=== PATIENT | male | born 1990 | race African-American/Black ===

== ENCOUNTER → 2018-04-20 11:44 | Outpatient (CLI) | payer MEDICARE ==
[2018-04-20 14:02] LABS: ALBUMIN 3.5 g/dL (3.4-5.0); BILIRUBIN - DIRECT 0.34 mg/dL (0.00-0.30); BILIRUBIN - INDIRECT 0.36 mg/dL (0.00-1.00); BILIRUBIN - TOTAL 0.7 mg/dL (0.2-1.3); PROTEIN - SERUM 7.4 g/dL (6.4-8.2)
== END | disposition home or self-care (01) ==
LOC: D.LABREF 11:44
PROVIDERS: Student in an Organized Health Care Education/Training Program
DX: R74.0 Nonspecific elevation of levels of transaminase and lactic acid dehydrogenase [LDH] (principal); E11.9 Type 2 diabetes mellitus without complications

== ENCOUNTER → 2018-05-25 09:15 | Outpatient (CLI) | payer OTHER | END | disposition home or self-care (01) | LOC: D.US 09:15 | DX: R74.0 Nonspecific elevation of levels of transaminase and lactic acid dehydrogenase [LDH] (principal) ==

== ENCOUNTER 2018-08-20 08:00 | Outpatient (CLI) | payer OTHER ==
[2018-08-20] MEDS ORDERED: GENVOYA PO (09:41)
[2018-08-20] MEDS ORDERED: ZESTRIL10 MG PO (09:41)
[2018-08-20] MEDS ORDERED: GLIMEPIRIDE2 MG PO (09:42)
[2018-08-20 10:29] LABS: BASOPHILS 0.2 % (0-2); EOSINOPHILS 2.2 % (0-7); HEMATOCRIT 42.1 % (42.0-54.0); HEMOGLOBIN 15.3 g/dL (13.5-17.5); IMMATURE GRANULOCYTES 0.2 % (0-5); LYMPHOCYTES 38.9 % (15-50); MCHC 36.3 g/dL (31.0-37.0); MCV 90.7 fL (80.0-100.0); MEAN PLATELET VOLUME 10.2 fL (7.4-10.4); MONOCYTES 6.7 % (2-11); NEUTROPHILS 51.8 % (40-80); PLATELET COUNT 231 10x3/uL (130-400); RBC 4.64 10x6/uL (4.20-6.10); RDW 12.8 % (11.5-14.5); WBC 5.5 10x3/uL (4.8-10.8)
[2018-08-20 10:37] LABS: APTT 22.9 SECONDS (22.8-39.4); INR 0.88 (0.85-1.17); PROTIME 11.5 SECONDS (11.6-15.0)
[2018-08-20 11:01] LABS: ALBUMIN 3.8 g/dL (3.4-5.0); ANION GAP 8.9 mmol/L (8-16); BILIRUBIN - TOTAL 0.78 mg/dL (0.2-1.3); CALCIUM 9.4 mg/dL (8.5-10.1); CARBON DIOXIDE 31.9 mmol/L (21.0-32.0); CREATININE - SERUM 1.3 mg/dL (0.6-1.3); POTASSIUM - SERUM 3.8 mmol/L (3.5-5.1); PROTEIN - SERUM 8.4 g/dL (6.4-8.2)
[2018-09-03] MEDS ORDERED: GLUCOPHAGE500 MG PO (10:38)
[2018-09-04 10:46] VITALS: BMI 38.8
== END 2018-08-20 08:01 | disposition home or self-care (01) ==
LOC: D.OPS 08:00 → EDSTATUS 08-21 09:45
PROVIDERS: Anesthesiology
DX: N47.1 Phimosis (principal); Z01.810 Encounter for preprocedural cardiovascular examination; Z01.811 Encounter for preprocedural respiratory examination; Z01.812 Encounter for preprocedural laboratory examination; Z53.9 Procedure and treatment not carried out, unspecified reason

== ENCOUNTER 2018-09-04 10:32 | Day surgery (SDC) | payer OTHER ==
[2018-09-03 10:26] LABS: BASOPHILS 0.2 % (0-2); EOSINOPHILS 2.1 % (0-7); HEMATOCRIT 36.5 % (42.0-54.0); HEMOGLOBIN 12.2 g/dL (13.5-17.5); IMMATURE GRANULOCYTES 0.3 % (0-5); LYMPHOCYTES 33.1 % (15-50); MCH 32.8 pg (26.0-34.0); MCHC 33.4 g/dL (31.0-37.0); MCV 98.1 fL (80.0-100.0); MEAN PLATELET VOLUME 9.4 fL (7.4-10.4); MONOCYTES 6.8 % (2-11); NEUTROPHILS 57.5 % (40-80); PLATELET COUNT 271 10x3/uL (130-400); RBC 3.72 10x6/uL (4.20-6.10); RDW 13.3 % (11.5-14.5); WBC 6.3 10x3/uL (4.8-10.8)
[2018-09-03 10:34] LABS: APTT 24.8 SECONDS (22.8-39.4); INR 0.87 (0.85-1.17); PROTIME 11.4 SECONDS (11.6-15.0)
[2018-09-03 10:38] LABS: ALBUMIN 3.6 g/dL (3.4-5.0); ALKALINE PHOSPHATASE 35 U/L (46-116); ALT (SGPT) 24 U/L (10-68); BILIRUBIN - TOTAL 1.59 mg/dL (0.2-1.3); CALC OSMOLALITY 279 mosm/kg (275-300); CALCIUM 9.2 mg/dL (8.5-10.1); CARBON DIOXIDE 30.8 mmol/L (21.0-32.0); CHLORIDE - SERUM 102 mmol/L (98-107); GLUCOSE 177 mg/dL (74-106); POTASSIUM - SERUM 3.8 mmol/L (3.5-5.1); PROTEIN - SERUM 7.8 g/dL (6.4-8.2); SODIUM 139 mmol/L (136-145); UREA NITROGEN 8 mg/dL (7-18); eGFR NON AFRICAN AMERICAN > 90 mL/min (90-120)
[~2018-09-04] VITALS: Ht 177.8 cm; Wt 122.5 kg
--- NOTE | ~2018-09-04 | OP ---
PATIENT NAME: REINALDO DIAZ MEDICAL RECORD: [id number] :88 LOCATION:D.[facility] ADMISSION DATE: SURGEON: JUNAID SUTTON MD DATE OF OPERATION: 09/04/2018 SURGEON: Junaid Sutton MD ANESTHESIA: General anesthesia by Cabrera Nascimento CRNA. DIAGNOSES: Phimosis, diabetes mellitus type 2. PROCEDURE: Circumcision. SPECIMENS: Foreskin. ESTIMATED BLOOD LOSS: None. CLINICAL HISTORY: This is a 28-year-old male who has diabetes mellitus type 2 and recurrent balanitis and now phimosis has developed. He cannot retract the foreskin back in order to clean it anymore. The skin splits painful when he attempts to pull the skin back. He tried to see a urologist in [place] as he lives in [place], [place]. They refused to treat him. The patient besides diabetes mellitus type 2, has a history of HIV positivity since 01/16/2018 and he also has hepatitis B. He is a male homosexual and he has a male sexual partner. He comes today for this circumcision procedure. HE IS ALLERGIC TO PENICILLIN. 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 DESCRIPTION OF PROCEDURE: The patient was given induction of general anesthesia in supine position. He was then prepped and draped. As the foreskin was very difficult to fully retract, we first did a dorsal slit. On either side of the dorsal midline, we placed hemostats. A straight clamp was used in the dorsal midline to crush the tissue. Metzenbaum scissors were then used to create a dorsal slit. We continued to extend the slit until we could fully expose the glans penis. The glans penis was cleaned out using Betadine swabs. A 2-0 nylon suture was placed through the glans penis for traction. We then marked out the lines of dissection. About 1 cm proximal to the zurita of the glans, a line was marked on the mucosal foreskin. We then allowed the foreskin to pull back in the extended position. On the cutaneous foreskin, the corresponding location was marked out with the penis being pulled to full erection length. These 2 incisions are made using a #15 blade. Metzenbaum scissors were then used to remove the intervening Dartos fascia. Any bleeding points were cauterized at the end with cautery. The skin was reapproximated using simple interrupted 4-0 Vicryl. A dressing of Kerlix wrapped around the penis was placed. The patient will be going home today. Due to his distance, I will see him on a p.r.n. basis. TRANSINT:[id number] Voice Confirmation ID: [id number] DOCUMENT ID: [id number] OPERATIVE REPORT [id number] REINALDO DIAZ ROBERT S MD at 0841 CC: [id number] DICTATION DATE: 09/04/18 153 HAIR BALER: 09/04/18 [id number] [facility] [place] 09/04/18 [facility] [address] [place] [address]
[~2018-09-04 10:32] MED LIST: GENVOYA PO; GLIMEPIRIDE2 MG PO; GLUCOPHAGE500 MG PO; ZESTRIL10 MG PO
[2018-09-04 10:46] VITALS: BP 130/72; Ht 177.8 cm; Wt 122.5 kg
== END 2018-09-04 17:41 | disposition home or self-care (01) ==
LOC: D.OPS 10:32 → D.PAN 11:30 → D.OPS 12:00
PROVIDERS: Anesthesiology
DX: N47.1 Phimosis (principal); N48.1 Balanitis; E11.9 Type 2 diabetes mellitus without complications; Z21 Asymptomatic human immunodeficiency virus [HIV] infection status; B19.10 Unspecified viral hepatitis B without hepatic coma; Z88.0 Allergy status to penicillin; Z01.812 Encounter for preprocedural laboratory examination